=== PATIENT | male | born 2000 | race Hispanic/Latino ===

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

== ENCOUNTER 2018-01-22 21:23 | Emergency (ER) | payer MEDICAID ==
[2018-01-22 21:23] VITALS: BMI 22.8
--- NOTE | 2018-01-22 23:23 | ED PDOC ---
HPI: Psych/Substance Abuse Time Seen by Provider: 01/22/18 21:48 Chief Complaint (Nursing): Substance Abuse Chief Complaint (Provider): Substance Abuse History Per: Patient History/Exam Limitations: no limitations Additional Complaint(s): 17 year old male presents to the emergency department after found by police officers. Patient admits to smoking PCP laced marijuana. On arrival, patient is awake, alert, oriented x3 with a steady gait and fluent speech. Denies any complaints, suicidal or homicidal ideation, and states he will be able to walk home if allowed. Past Medical History Reviewed: Historical Data, Nursing Documentation, Vital Signs Vital Signs: Last Vital Signs Temp 99.1 F 01/22/18 21:32 Pulse 101 H 01/22/18 21:32 Resp 18 01/22/18 21:32 BP 158/84 H 01/22/18 21:32 Pulse Ox 98 01/22/18 21:32 - Medical History PMH: Denies: Diabetes, Hepatitis, HIV, HTN, Seizures, Sexually Transmitted Disease - Surgical History Surgical History: No Surg Hx - Family History Family History: States: Unknown Family Hx - Social History Current smoker - smoking cessation education provided: Yes Alcohol: Social Drugs: Cannabis, Other (PCP) - Allergies Allergies/Adverse Reactions: Allergies Allergy/AdvReac Type Severity Reaction Status Date / Time No Known Allergies Allergy Verified 01/22/18 21:32 Review of Systems ROS Statement: Except As Marked, All Systems Reviewed And Found Negative (As per HPI, otherwise negative) Psych: Negative for: Suicidal ideation (homicidal ideation) Physical Exam - Reviewed Nursing Documentation Reviewed: Yes Vital Signs Reviewed: Yes - Physical Exam Appears: Positive for: No Acute Distress Head Exam: Positive for: NORMAL INSPECTION Skin: Positive for: Normal Color, Warm, Dry Eye Exam: Positive for: Normal appearance, EOMI, PERRL ENT: Positive for: Normal ENT Inspection Cardiovascular/Chest: Positive for: Regular Rate, Rhythm. Negative for: Murmur Respiratory: Positive for: Normal Breath Sounds. Negative for: Accessory Muscle Use, Respiratory Distress Gastrointestinal/Abdominal: Positive for: Normal Exam, Soft. Negative for: Tenderness Extremity: Positive for: Normal ROM. Negative for: Pedal Edema Neurologic/Psych: Positive for: Alert, Oriented (x3) - ECG O2 Sat by Pulse Oximetry: 98 (RA) Pulse Ox Interpretation: Normal Medical Decision Making Medical Decision Making: Time: 2147 Initial Impression: PCP abuse Initial Plan: --Patient is medically stable and ready for discharge. Time:2199 Initial Impression: PCP (phencyclidine) abuse Scribe Attestation: Documented by Cheryle Saucedo acting as a scribe for Aquiles Small MD. Scribe Attestation: All medical record entries made by the Scribe were at my direction and personally dictated by me. I have reviewed the chart and agree that the record accurately reflects my personal performance of the history, physical exam, medical decision making, and the department course for this patient. I have also personally directed, reviewed, and agree with the discharge instructions and disposition. Disposition - Clinical Impression Clinical Impression: PCP (phencyclidine) abuse - Patient ED Disposition Is Patient to be Admitted: No Counseled Patient/Family Regarding: Diagnosis - Disposition Disposition: Routine/Home Disposition Time: 22:00 Condition: STABLE Instructions: Polysubstance Abuse Forms: [facility] (Yakut)
[2018-01-23 00:01] VITALS: BP 130/78; PULSE 90; RESP 20; TEMP 98; O2SAT 100
== END 2018-01-22 22:30 | disposition home or self-care (01) ==
LOC: H.ER 21:23
DX: F16.10 Hallucinogen abuse, uncomplicated (principal)